=== PATIENT | female | born 1990 | race Caucasian/White ===

== ENCOUNTER 2021-08-23 05:27 | Inpatient (IN) ==
[2021-08-23] MEDS ORDERED: OXYTOCIN/LR 20 UNIT/1,000 ML BAG IV ONE ×2 (05:36→10:01)
[2021-08-23] MEDS ORDERED: miSOPROStoL 200 MCG TABLET RECTAL PRN (05:36)
[2021-08-23] MEDS ORDERED: CARBOPROST TROMETHAMINE 250 MCG/ML AMP IM PRN (05:36)
[2021-08-23] MEDS ORDERED: METHYLERGONOVINE 0.2 MG/1 ML AMP IM PRN (05:36)
[2021-08-23] MEDS ORDERED: TRANEXAMIC ACID 1,000 MG in SODIUM CHLORIDE 0.9% 100 ML IV PRN (05:36)
[2021-08-23] MEDS ORDERED: LACTATED RINGERS 250 ML IV PRN (05:41)
[2021-08-23] MEDS ORDERED: ONDANSETRON 4 MG/2 ML VIAL IV PRN ×2 (05:41→10:01)
[2021-08-23] MEDS ORDERED: ePHEDrine 50 MG/ML VIAL IV PRN (05:41)
[2021-08-23] MEDS ORDERED: hydrOXYzine HCL 25 MG/1 ML VIAL IM PRN (05:41)
[2021-08-23] MEDS ORDERED: diphenhydrAMINE 50 MG/1 ML VIAL IV PRN ×2 (05:41)
[2021-08-23] MEDS ORDERED: PROMETHAZINE 25 MG/1 ML VIAL IM ONE (05:41)
[2021-08-23] MEDS ORDERED: LACTATED RINGERS 1,000 ML IV SCH (06:00)
[2021-08-23 06:21] LABS: Basophils % 0.3 % (0.0-0.8); Eosinophils % 0.4 % (0.00-10.9); Hematocrit 34.3 VOL% (35.7-47.0); Hemoglobin 11.7 GM/DL (12.0-16.0); Immature Granulocytes % 2.8 %; Immature Granulocytes Absolute 0.31 #; Lymphocytes # 1.9 10*3/uL (1.4-4.0); Lymphocytes % 17.4 % (21.3-54.2); Mean Corpuscular HGB Conc 34.1 GM/DL (32-36); Mean Corpuscular Volume 85.1 FL (87-102); Mean Platelet Volume 11.2 FL (9.6-12.0); Monocytes # 1.2 10*3/uL (0.11-0.8); Monocytes % 10.5 % (1.7-12.7); Neutrophils % 68.6 % (38.7-73.9); Platelet Count 145 T/CUMM (130-400); Red Blood Count 4.03 MC/CUMM (3.8-5.5); Red Cell Distribution Width 14.1 % (9.3-17.3); White Blood Count 11.1 T/CUMM (4-12)
[2021-08-23] MEDS ORDERED: FAMOTIDINE 20 MG/2 ML VIAL IV ONE (06:30)
[2021-08-23] MEDS ORDERED: CITRIC ACID/SODIUM CITRATE 30 ML UDCUP PO ONE (06:30)
[2021-08-23] MEDS ORDERED: ceFAZolin 2,000 MG/50 ML DUPLEX IV ONE (06:30)
[2021-08-23 06:38] LABS: Alanine Aminotransferase 21 U/L (13-56); Albumin 2.6 G/DL (3.4-5.0); Alkaline Phosphatase 118 U/L (45-117); Aspartate Amino Transferase 18 U/L (0-37); Bilirubin,Total < 0.39 MG/DL (0.20-1.00); Blood Urea Nitrogen 10 MG/DL (7-18); Calcium 8.7 MG/DL (8.5-10.1); Carbon Dioxide 20 MMOL/L (21-32); Chloride 108 MMOL/L (98-107); Glucose 95 MG/DL (74-106); Osmolality,Calculated 273.7 MOS/KG (273-304); Potassium 3.7 MMOL/L (3.5-5.1); Sodium 138 MMOL/L (136-145); Total Protein 6.4 G/DL (6.4-8.2)
[2021-08-23] MEDS ORDERED: LACTATED RINGERS 1,000 ML IV ONE ×2 (06:43→08:45)
[2021-08-23 07:17] LABS: INR 0.9; PT Patient Result 9.9 SECS (10.5-12.0); Partial Thromboplastin Time 29.9 SECS (23.7-32.9)
[2021-08-23] MEDS ORDERED: buprenorphine HCL 0.3 MG/ML VIAL ONE (07:26)
[2021-08-23] MEDS ORDERED: ONDANSETRON 4 MG/2 ML VIAL ONE (07:27)
[2021-08-23] MEDS ORDERED: ePHEDrine 50 MG/ML VIAL ONE (07:48)
[2021-08-23] MEDS ORDERED: ACETAMINOPHEN INJ 1,000 MG/100 ML VIAL IV ONE (07:54)
[2021-08-23] MEDS ORDERED: PHENYLEPHRINE 1 MG/10 ML SYRINGE IV ONE ×2 (08:18)
[2021-08-23 08:23] LABS: Cord Arterial Blood HCO3 20.1 MMOL/L
[2021-08-23 08:26] LABS: Cord Venous Blood HCO3 21.6 MMOL/L; Cord Venous Blood PCO2 43.4 MMHG; Cord Venous Blood PO2 29.7
[2021-08-23] MEDS ORDERED: BUPIVACAINE SPINAL 0.75% 2 ML AMP SPINAL ONE (08:46)
[2021-08-23] MEDS ORDERED: LANOLIN 50% CREAM 0.3 OZ TUBE TOP PRN (10:01)
[2021-08-23] MEDS ORDERED: BENZOCAINE 20%/MENTHOL 0.5% SPRAY 56 GM CAN TOP PRN (10:01)
[2021-08-23] MEDS ORDERED: ACETAMINOPHEN 325 MG TABLET PO PRN (10:01)
[2021-08-23] MEDS ORDERED: RHO(D) IMMUNE GLOBULIN 300 MCG SYRINGE IM ONE (10:01)
[2021-08-23] MEDS ORDERED: MEASLES/MUMPS/RUBELLA VACCINE 0.5 ML VIAL SUBCUT ONE (10:01)
[2021-08-23] MEDS ORDERED: oxyCODONE/ACETAMINOPHEN 5-325 MG TABLET PO PRN (10:01)
[2021-08-23] MEDS ORDERED: HYDROCORTISONE 2.5% RECTAL CREAM 30 GM TUBE TOP PRN (10:01)
[2021-08-23] MEDS ORDERED: WITCH HAZEL PADS 100/JAR TOP PRN (10:01)
[2021-08-23] MEDS ORDERED: BISACODYL 10 MG SUPP RECTAL PRN (10:01)
[2021-08-23] MEDS ORDERED: DIPH/TET/ACEL PERT BOOSTER VACCINE 0.5 ML VIAL IM ONE (10:01)
[2021-08-23 10:21] LABS: Bilirubin,Urine Negative (Negative); Blood, Urine Trace mg/dL (Negative); Glucose,Urine (UA) Negative (Negative); Ketones,Urine Negative (Negative); Mucus,Urine Occasional /LPF (Occasional); Nitrite,Urine Negative (Negative); Protein,Urine 30 mg/dL (Negative); RBC,Urine 8 /HPF (0-4); Squamous Epithelial Cell,Urine Occasional /HPF (0-10); Urine Appearance Clear (Clear); Urine Color Yellow (Yellow); Urine Specific Gravity 1.025 (1.001-1.035)
[2021-08-23] MEDS: oxyCODONE/ACETAMINOPHEN 5-325 MG TABLET PO PRN (16:25)
[2021-08-23] MEDS: ACETAMINOPHEN 500 MG TABLET PO SCH (18:21)
[2021-08-23] MEDS: DOCUSATE SODIUM 100 MG CAPSULE PO SCH (20:54)
[2021-08-23] MEDS: IBUPROFEN 800 MG TABLET PO PRN (20:54)
[2021-08-24] MEDS: ACETAMINOPHEN 500 MG TABLET PO SCH ×2 (01:25→08:15)
[2021-08-24] MEDS: IBUPROFEN 800 MG TABLET PO PRN ×3 (03:53→19:52)
[2021-08-24 04:07] LABS: Basophils % 0.2 % (0.0-0.8); Eosinophils % 0.4 % (0.00-10.9); Hematocrit 25.3 VOL% (35.7-47.0); Hemoglobin 8.2 GM/DL (12.0-16.0); Immature Granulocytes % 0.6 %; Immature Granulocytes Absolute 0.07 #; Lymphocytes # 1.2 10*3/uL (1.4-4.0); Lymphocytes % 11.3 % (21.3-54.2); Mean Corpuscular HGB Conc 32.4 GM/DL (32-36); Mean Corpuscular Volume 87.5 FL (87-102); Mean Platelet Volume 10.7 FL (9.6-12.0); Monocytes # 1.1 10*3/uL (0.11-0.8); Monocytes % 9.7 % (1.7-12.7); Neutrophils % 77.8 % (38.7-73.9); Platelet Count 102 T/CUMM (130-400); Red Blood Count 2.89 MC/CUMM (3.8-5.5); Red Cell Distribution Width 14.2 % (9.3-17.3); White Blood Count 10.9 T/CUMM (4-12)
[2021-08-24] MEDS: DOCUSATE SODIUM 100 MG CAPSULE PO SCH ×2 (08:15→22:04)
[2021-08-24] MEDS: FERROUS SULFATE 325 MG TABLET PO SCH ×2 (08:16→22:04)
[2021-08-25] MEDS: DOCUSATE SODIUM 100 MG CAPSULE PO SCH (08:05)
[2021-08-25] MEDS: oxyCODONE/ACETAMINOPHEN 5-325 MG TABLET PO PRN ×2 (08:05)
[2021-08-25] MEDS: FERROUS SULFATE 325 MG TABLET PO SCH (08:05)
[2021-08-25 11:58] VITALS: BP 129/58
== END 2021-08-25 13:30 | disposition home or self-care (01) | DRG 787 ==
LOC: N.LD 05:27 → N.OB 14:13
PROVIDERS: ADMIT Specialist; ATTEND Specialist
PROC: LDCSECT (ICD-10-PCS; 2021-08-23 07:30)